=== PATIENT | male | born 1960 | race African-American/Black ===

== ENCOUNTER 2016-10-10 00:03 | Emergency (ER) | payer OTHER ==
[~2016-10-10] VITALS: Ht 190.5 cm; Wt 128.6 kg
[2016-10-10] MEDS ORDERED: SODIUM CHLORIDE 0.9% 1,000 ML IV ONE (00:49)
[2016-10-10] MEDS ORDERED: KETOROLAC 30MG/ML VIAL IV STA (00:49)
[2016-10-10] MEDS ORDERED: ONDANSETRON HCL 4MG/2ML VIAL IV STA (00:49)
[2016-10-10 01:36] LABS: BASOPHILS % 0.8 % (0.0-2.0); EOSINOPHILS % 1.4 % (0.0-5.0); HEMATOCRIT. 41.4 % (42.0-52.0); HEMOGLOBIN. 13.6 g/dL (14.0-18.0); LYMPHOCYTES % 18.7 % (20.0-50.0); MEAN CORPUSCULAR HEMOGLOBIN 31.7 pg (28.0-32.0); MEAN CORPUSCULAR VOLUME 96.4 fL (80.0-94.0); MEAN PLATELET VOLUME 8.8 fl (7.4-10.4); MONOCYTES % 9.9 % (2.0-8.0); NEUTROPHILS % 69.2 % (40.0-76.0); PLATELET 187 x1000/uL (130-400)
[2016-10-10 01:42] LABS: CHLORIDE 107 mEq/L (98-107)
[2016-10-10 01:43] LABS: INR 1.1; PROTHROMBIN TIME 11.4 sec
[2016-10-10 01:51] LABS: CARBON DIOXIDE 25 mEq/L (21-32)
[2016-10-10 04:12] VITALS: BP 135/81
== END 2016-10-10 04:15 | disposition home or self-care (01) ==
LOC: ER 00:36
DX: J01.90 Acute sinusitis, unspecified (principal); R51 Headache; I10 Essential (primary) hypertension; E11.9 Type 2 diabetes mellitus without complications
CPT/HCPCS: 36415; 70450; 80053; 85025; 85610; 96361; 96374; 96375; 99285; J1885; J2405; J7030; Z7610